=== PATIENT | female | born 1965 | race Caucasian/White ===

== ENCOUNTER 2016-09-30 22:58 | Emergency (ER) | payer OTHER ==
[~2016-09-30] VITALS: Ht 172.7 cm; Wt 86.2 kg
--- NOTE | 2016-10-01 00:27 | ED GI/GU/ABDOMINAL COMPLAINT ---
History of Present Illness General Chief Complaint: Abdominal Pain/Flank Pain Stated Complaint: FLANK PAIN Source: patient, old records Exam Limitations: no limitations Vital Signs & Intake/Output Vital Signs & Intake/Output Vital Signs Date Time Temp Pulse Resp B/P Pulse O2 O2 Flow FiO2 Ox Delivery Rate 10/01 0245 98.4 103 18 128/88 98 Room Air 10/01 0059 Room Air 09/30 2312 99.5 87 16 155/84 100 Room Air ED Intake and Output 10/01 0000 09/30 1200 Intake Total Output Total Balance Patient 190 lb Weight Allergies Coded Allergies: No Known Allergies (09/30/16) Triage Note: PT TO TRIAGE WITH L FLANK PAIN ON/OFF INCREASING WITH DEEP INSPIRATIONS STARTED 1HR H[employer]. NO OTHER COMPLAINTS. VSS. Triage Nurses Notes Reviewed? yes ? N Is pt currently ? No HPI: Patient returned when she has some onset of sharp sudden pain to her left upper flank area that radiates towards her left upper quadrant. The pain increases with deep breath. The pain is 8 out of 10. There is no shortness of breath. There is no dysuria or hematuria. Past History Travel History Traveled to [place] past 21 day No Medical History Any Pertinent Medical History? none Surgical History Surgical History: non-contributory Psychosocial History What is your primary language Sami Tobacco Use: Never used ETOH Use: occasional use Illicit Drug Use: denies illicit drug use Family History Hx Contributory? No Review of Systems Review of Systems Constitutional: Reports: no symptoms. EENTM: Reports: no symptoms. Respiratory: Reports: no symptoms. Cardiovascular: Reports: no symptoms. GI: Reports: no symptoms. Genitourinary: Reports: no symptoms. Musculoskeletal: Reports: see HPI, back pain. Skin: Reports: no symptoms. Neurological/Psychological: Reports: no symptoms. Hematologic/Endocrine: Reports: no symptoms. Immunologic/Allergic: Reports: no symptoms. All Other Systems: Reviewed and Negative Physical Exam Physical Exam General Appearance: well developed/nourished, alert, awake, anxious, moderate distress Head: atraumatic, normal appearance Eyes: Bilateral: PERRL, EOMI. Ears, Nose, Throat, Mouth: hearing grossly normal, moist mucous membrane Neck: normal inspection, supple, full range of motion Respiratory: normal breath sounds, chest non-tender, no respiratory distress, lungs clear Cardiovascular: regular rate/rhythm, normal peripheral pulses Gastrointestinal: normal bowel sounds, soft, non-tender, no organomegaly Back: normal inspection, normal range of motion, NO cva TENDERNESS Extremities: normal range of motion Neurologic/Psych: no motor/sensory deficits, awake, alert, oriented x 3, normal gait, normal mood/affect Skin: intact, normal color, warm/dry Core Measures ACS in differential dx? No Severe Sepsis Present: No Septic Shock Present: No Progress Differential Diagnosis: gastritis, hepatitis, ischemic bowel, inflamm bowel dis, kidney stone, pancreatitis, peptic ulcer, PUD/GERD, perforated viscous, PE Plan of Care: Orders Procedure Date/time Status URINALYSIS 10/01 26 Complete HUMAN BETA HCG SCREEN 10/01 26 Complete D-DIMER 10/01 26 Complete COMPREHENSIVE METABOLIC PANEL 10/01 26 Complete CBC WITHOUT DIFFERENTIAL 10/01 26 Complete Laboratory Tests 10/01/16 0120: Anion Gap 9, Estimated GFR > 60, BUN/Creatinine Ratio 24.0, Glucose 102 H, Calcium 10.0, Total Bilirubin 0.5, AST 24, ALT 45, Alkaline Phosphatase 76, Total Protein 7.2, Albumin 4.0, Globulin 3.2, Albumin/Globulin Ratio 1.3, Total Beta HCG NEGATIVE 10/01/16 0115: Urinalysis LIGHT H, Urine Color STRAW, Urine Clarity CLEAR, Urine pH 7.0, Ur Specific [place] <= 1.005, Urine Protein NEG, Urine Ketones NEG, Urine Nitrite NEG, Urine Bilirubin NEG, Urine Urobilinogen 0.2, Ur Leukocyte Esterase NEG, Ur Microscopic SEDIMENT EXAMINED, Urine RBC 1-3, Ur Epithelial Cells FEW, Urine Hemoglobin SMALL H, Urine Glucose NEG 10/01/16 0056: D-Dimer 269 H, CBC w Diff NO MAN DIFF REQ, RBC 5.32, MCV 85.7, MCH 29.0, RDW 13.7, MPV 7.4, Gran % 76.1 H, Lymphocytes % 16.1 L, Monocytes % 6.6, Eosinophils % 0.6, Basophils % 0.6, Absolute Granulocytes 10.8 H, Absolute Lymphocytes 2.3, Absolute Monocytes 0.9 H, Absolute Eosinophils 0.1, Absolute Basophils 0.1, PUBS MCHC 33.8 Diagnostic Imaging: Viewed by Me: CT Scan. Discussed w/RAD: CT Scan. Radiology Impression: PATIENT: LESLEY MALDONADO PRESENT AGE: 51 PATIENT ACCOUNT NO: [id number] : 66 LOCATION: [facility] ORDERING PHYSICIAN: BEATRIZ ODSS MD SERVICE DATE: 10/01/16 EXAM TYPE: CAT - CTA CHEST-PULMONARY EMBOLISM EXAMINATION: CT ANGIOGRAM OF THE CHEST WITH AND WITHOUT CONTRAST (CT PULMONARY ANGIOGRAM FOR PE) CLINICAL INFORMATION: Presumptive diagnosis of pulmonary embolism. Chest pain. Left flank pain. Elevated d-dimer. COMPARISON: No relevant prior imaging is available. TECHNIQUE: Prior to contrast administration, noncontrast localization images were obtained. Subsequently, multidetector volumetric imaging was performed from the thoracic inlet to below the diaphragms following the administration of 70 mL Optiray 320 intravenous contrast. No contrast reaction reported. Sagittal, coronal, and MIP oblique sagittal reformatted images were obtained on the CT workstation, uploaded to PACS, and reviewed. Total exam dose-length product 554.76 mGy-cm. FINDINGS: The timing of the contrast bolus injection provides adequate opacification of the pulmonary arterial vasculature. There is no central luminal filling defect to suggest the presence of an acute pulmonary embolism. There is a pleural-based nodule along the lateral margin of the left lower lobe best illustrated on axial image 279 of 496 series 3 that measures 1.2 cm in diameter. A few other possible subpleural pulmonary nodules are visualized within the lingula for instance on axial image 319 of 496 measuring 0.4 cm in diameter. Subsegmental atelectasis is visualized within the posterior costophrenic recess of left lower lobe. There is no overt consolidative disease or pleural effusion. No pneumothorax. The chest wall is grossly intact. There is no acute osseous finding. Specifically no evidence of acute fracture. The heart is normal and there is no pericardial effusion. The aortic arch apex and the origins of the major aortic branches are patent. Visualized portions of the thoracic outlet including the thyroid gland are unremarkable. There are no pathologically enlarged mediastinal or axillary lymph nodes. Visualized portions of the upper abdomen reveal no abnormal finding. IMPRESSION: No evidence of acute pulmonary embolism. There is a 1.2 cm subpleural nodule involving the lateral aspect of the left lower lobe. A few other small nodules are visualized within the lingula of the left upper lobe. The etiology of this finding is not certain. Differential considerations include infectious or inflammatory etiologies. The possibility of a pulmonary malignancy cannot be excluded on the basis of this examination. DICTATED BY: ELANA BERNSTEIN MD DATE/TIME DICTATED:10/01/16243 ECONOMIC ADVISER:BRIGITTE DATE/TIME TRANSCRIBED:10/01/16243 CONFIDENTIAL, DO NOT COPY WITHOUT APPROPRIATE AUTHORIZATION. <Electronically signed in Other Vendor System> SIGNED BY: ELANA BERNSTEIN MD 10/01/16 0256 Initial ED EKG: none Departure Departure Disposition: HOME OR SELF CARE Condition: Stable Clinical Impression Primary Impression: Left flank pain Referrals: NAKUL WELLINGTON,KIRSTEN Nelson (PCP/Family) Additional Instructions: HAVE A REPEAT CHEST CT SCAN IN [address] [place] [address] RETURN FOR ANY CONCERNS Departure Forms: Customer Survey General Discharge Information Prescriptions: Current Visit Scripts Oxycodone HCl/Acetaminophen (Percocet 5-325 MG Tablet) 1-2 TAB PO Q6P PRN PAIN #20 TAB
[2016-10-01 01:04] LABS: ABSOLUTE BASOPHIL COUNT 0.1 /CUMM (0.0-0.2); ABSOLUTE EOSINOPHIL COUNT 0.1 /CUMM (0.0-0.7); ABSOLUTE GRANULOCYTE CT 10.8 /CUMM (1.4-6.5); ABSOLUTE LYMPH COUNT 2.3 /CUMM (1.2-3.4); ABSOLUTE MONOCYTE COUNT 0.9 /CUMM (0.10-0.60); BASOPHIL % 0.6 % (0.0-2.0); EOSINOPHIL % 0.6 % (0-5); GRANULOCYTE % 76.1 % (42.2-75.2); HEMATOCRIT 45.6 % (37-47); MEAN CORPUSCULAR HGB CONC 33.8 G/DL (33.0-37.0); MEAN CORPUSCULAR VOLUME 85.7 FL (81.0-99.0); MEAN PLATELET VOLUME 7.4 FL (7.4-10.4); PLATELET COUNT 398 /CUMM (130-400); RBC DISTRIBUTION WIDTH 13.7 % (11.5-14.5); RED BLOOD CELL CT 5.32 /CUMM (4.20-5.40); WHITE BLOOD CELL COUNT 14.2 /CUMM (4.8-10.8)
[2016-10-01 02:45] VITALS: BP 128/88
--- NOTE | 2016-10-01 02:56 | CT SCAN REPORT ---
EXAMINATION: CT ANGIOGRAM OF THE CHEST WITH AND WITHOUT CONTRAST (CT PULMONARY ANGIOGRAM FOR PE) CLINICAL INFORMATION: Presumptive diagnosis of pulmonary embolism. Chest pain. Left flank pain. Elevated d-dimer. COMPARISON: No relevant prior imaging is available. TECHNIQUE: Prior to contrast administration, noncontrast localization images were obtained. Subsequently, multidetector volumetric imaging was performed from the thoracic inlet to below the diaphragms following the administration of 70 mL Optiray 320 intravenous contrast. No contrast reaction reported. Sagittal, coronal, and MIP oblique sagittal reformatted images were obtained on the CT workstation, uploaded to PACS, and reviewed. Total exam dose-length product 554.76 mGy-cm. FINDINGS: The timing of the contrast bolus injection provides adequate opacification of the pulmonary arterial vasculature. There is no central luminal filling defect to suggest the presence of an acute pulmonary embolism. There is a pleural-based nodule along the lateral margin of the left lower lobe best illustrated on axial image 279 of 496 series 3 that measures 1.2 cm in diameter. A few other possible subpleural pulmonary nodules are visualized within the lingula for instance on axial image 319 of 496 measuring 0.4 cm in diameter. Subsegmental atelectasis is visualized within the posterior costophrenic recess of left lower lobe. There is no overt consolidative disease or pleural effusion. No pneumothorax. The chest wall is grossly intact. There is no acute osseous finding. Specifically no evidence of acute fracture. The heart is normal and there is no pericardial effusion. The aortic arch apex and the origins of the major aortic branches are patent. Visualized portions of the thoracic outlet including the thyroid gland are unremarkable. There are no pathologically enlarged mediastinal or axillary lymph nodes. Visualized portions of the upper abdomen reveal no abnormal finding. IMPRESSION: No evidence of acute pulmonary embolism. There is a 1.2 cm subpleural nodule involving the lateral aspect of the left lower lobe. A few other small nodules are visualized within the lingula of the left upper lobe. The etiology of this finding is not certain. Differential considerations include infectious or inflammatory etiologies. The possibility of a pulmonary malignancy cannot be excluded on the basis of this examination.
[2016-10-01] MEDS ORDERED: PERCOCET 5-3251 EACH PO (03:08)
== END 2016-10-01 03:12 ==
LOC: ERH 22:58
PROVIDERS: Emergency Medicine
DX: R10.9 Unspecified abdominal pain (principal)
CPT/HCPCS: 81001; J1885